=== PATIENT | female | born 1955 | race Caucasian/White ===

== ENCOUNTER → 2016-12-17 | Outpatient (CLI) | payer OTHER ==
--- NOTE | ~2016-12-17 | CT57 ---
[facility] A Service of [facility] RADIOLOGY TEXT RESULTS PATIENT: KAUSHIK ROMERO LOCATION: [facility] : 57 UNIT #: [id number] AGE: [address]: Sabiha Owen SEX: F ORDER DR: [id number] [facility] [address] [place], [place] [address] [id number] O MR#: [id number] Acc #: [id number] NAME: KAUSHIK ROMERO : 1955 SEX: F STUDY DATE/TIME: 12/17/2016 13:18 UNIT: [facility] ROOM: STUDY DESCRIPTION: CT Chest Wo Cont Attending Physician: Sabiha Owen A.P.R.N. Referring Physician: Sabiha Owen A.P.R.N. Ordering Physician: Sabiha Owen A.P.R.N. Primary Care Physician: Ana Marie MEDICAL IMAGING REPORT This report is preliminary unless electronic signature is present EXAM CT chest INDICATIONS Dyspnea. COPD. Cough for [address] of the chest without contrast. Coronal and sagittal reconstructions were obtained. This CT exam was performed with one or more of the following radiation dose reduction techniques: automatic exposure control, adjustment of mA and/or kV according to patient size, and iterative reconstruction. COMPARISON None available. FINDINGS There is background COPD. No focal consolidation. Central airways are patent. No pathologically enlarged mediastinal or hilar lymph nodes. There is no pericardial or pleural effusion. There is moderate coronary calcifications. Limited images of the upper abdomen were obtained. There is no acute findings. There is a compression fracture of the T7 vertebra. This results In 50% anterior height loss and minimal posterior height loss. No discrete mass or lesion is identified within the fracture. There is generalized sclerosis of the compression fracture; therefore, I would recommend further evaluation with MRI of the thoracic spine. No [facility] A Service of [facility] RADIOLOGY TEXT RESULTS PATIENT: KAUSHIK ROMERO LOCATION: [facility] : 57 UNIT #: [id number] AGE: [address]: Sabiha Owen SEX: F ORDER DR: additional osseous lesions are identified. IMPRESSION 1. A subacute to chronic anterior compression fracture of the T7 vertebra. Generalized sclerosis of the vertebral body is noted. This probably represents a simple compression fracture; however, consider further imaging to differentiate for pathologic fracture. Recommend either a bone scan or MRI of the thoracic spine (with and without contrast) to further evaluate. 2. No additional osseous lesions are identified. 3. Mild emphysema. No acute findings in the chest. Dictated by... Bill Lenz M.D. THIS IS AN ELECTRONICALLY VERIFIED REPORT Bill Lenz M.D. at 12/20/2016 3:00 PM SHERI/liberty TD: 12/17/2016 21:09 JOB #: [id number] MEDICAL IMAGING REPORT Page 1 of 1 COPY
== END | disposition home or self-care (01) ==
LOC: CCAT 12:39
DX: J44.9 Chronic obstructive pulmonary disease, unspecified (principal); M48.54XA Collapsed vertebra, not elsewhere classified, thoracic region, initial encounter for fracture
CPT/HCPCS: 71250